=== PATIENT | female | born 1980 | race Two or more races ===

== ENCOUNTER 2019-07-04 10:17 | Inpatient (IN) | payer OTHER ==
[~2019-07-04] VITALS: Ht 157.5 cm; Wt 78.0 kg
[2019-07-17] MEDS ORDERED: DOCUSATE SODIU100 MG PO (13:39)
[2019-07-17] MEDS ORDERED: OXYC1TAB9 PO (13:39)
[2019-07-17] MEDS ORDERED: NABUMETONE750 MG PO (13:39)
== END 2019-07-17 13:45 | disposition home or self-care (01) | DRG 743 ==
LOC: O/R 07-14 06:13 → OB/GYN 07-14 06:13 → SURG 07-14 07:00 → OB/GYN 07-14 10:45
PROVIDERS: ADMIT Obstetrics & Gynecology
PROC: 0UT70ZZ Resection of Bilateral Fallopian Tubes, Open Approach (ICD-10-PCS; 2019-07-14)
PROC: 0UT90ZZ Resection of Uterus, Open Approach (ICD-10-PCS; principal; 2019-07-14 07:00)
DX: D25.1 Intramural leiomyoma of uterus (principal); D25.2 Subserosal leiomyoma of uterus